=== PATIENT | female | born 1995 | race Caucasian/White ===

== ENCOUNTER → 2020-07-26 07:32 | Outpatient (BNVA) | payer BC, OTHER, SELFPAY | PROVIDERS: Family Provider Family Medicine; Visit Provider Nurse Practitioner Psychiatric/Mental Health | DX: F33.2 Major depressive disorder, recurrent severe without psychotic features (principal); F41.0 Panic disorder [episodic paroxysmal anxiety]; F41.1 Generalized anxiety disorder | CPT/HCPCS: 99214 ==

== ENCOUNTER → 2020-08-11 07:23 | Outpatient (BNVA) | payer OTHER, BC, SELFPAY | PROVIDERS: Family Provider Family Medicine; Visit Provider Nurse Practitioner Psychiatric/Mental Health | DX: F33.2 Major depressive disorder, recurrent severe without psychotic features (principal); F41.0 Panic disorder [episodic paroxysmal anxiety]; F41.1 Generalized anxiety disorder | CPT/HCPCS: 99214 ==

== ENCOUNTER → 2020-09-07 08:23 | Outpatient (BNVA) | payer OTHER, SELFPAY | PROVIDERS: Family Provider Family Medicine; Visit Provider Nurse Practitioner Psychiatric/Mental Health | DX: F33.2 Major depressive disorder, recurrent severe without psychotic features (principal); F41.0 Panic disorder [episodic paroxysmal anxiety]; F41.1 Generalized anxiety disorder | CPT/HCPCS: 99214 ==

== ENCOUNTER → 2020-10-12 07:40 | Outpatient (BNVA) | payer OTHER, SELFPAY | PROVIDERS: Family Provider Family Medicine; Visit Provider Nurse Practitioner Psychiatric/Mental Health | DX: F33.2 Major depressive disorder, recurrent severe without psychotic features (principal); F41.0 Panic disorder [episodic paroxysmal anxiety]; F41.1 Generalized anxiety disorder | CPT/HCPCS: 99213 ==

== ENCOUNTER → 2020-11-09 09:34 | Outpatient (BNVA) | payer OTHER, SELFPAY | PROVIDERS: Visit Provider Emergency Medicine | DX: Z20.828 Contact with and (suspected) exposure to other viral communicable diseases (principal); R11.0 Nausea; R68.89 Other general symptoms and signs; R11.2 Nausea with vomiting, unspecified | CPT/HCPCS: 87400; 87635 ==

== ENCOUNTER → 2020-11-12 10:16 | Outpatient (BNVA) | payer OTHER, SELFPAY | PROVIDERS: Visit Provider Emergency Medicine | DX: Z20.828 Contact with and (suspected) exposure to other viral communicable diseases (principal); R68.89 Other general symptoms and signs | CPT/HCPCS: 71046; 87635 ==

== ENCOUNTER → 2020-12-27 08:14 | Outpatient (BNVA) | payer OTHER, SELFPAY | PROVIDERS: Family Provider Family Medicine; Visit Provider Nurse Practitioner Psychiatric/Mental Health | DX: F33.2 Major depressive disorder, recurrent severe without psychotic features (principal); F41.0 Panic disorder [episodic paroxysmal anxiety]; F41.1 Generalized anxiety disorder | CPT/HCPCS: 99214 ==

== ENCOUNTER 2021-06-28 09:17 | Outpatient (CLI) | payer SELFPAY ==
[2021-06-28 09:30] VITALS: BP 160/106; PULSE 123
[2021-06-28 09:54] VITALS: BP 134/90; PULSE 111
[2021-06-28 10:03] LABS: Actim Prom Negative
[2021-06-28 10:04] VITALS: BMI 57.1
[2021-06-28 10:08] VITALS: RESP 18
[2021-06-28 10:09] VITALS: BP 137/89; PULSE 97
== END 2021-06-28 10:22 | disposition home or self-care (01) ==
LOC: OPOB 09:19 → OBGYN 09:20
PROVIDERS: Family Provider Family Medicine; Visit Provider Family Medicine
DX: O26.899 Other specified pregnancy related conditions, unspecified trimester (principal); Z3A.00 Weeks of gestation of pregnancy not specified; N89.8 Other specified noninflammatory disorders of vagina
CPT/HCPCS: 59025; 83986; 84112; 99211

== ENCOUNTER 2021-06-30 12:47 | Inpatient (IN) | payer SELFPAY ==
[2021-06-30] VITALS (79 sets, daily range): BP systolic 128–173; BP diastolic 60–113; PULSE 74–100; RESP 17–18; TEMP 35.8–37.1; O2SAT 97–98; BMI 64.2
[2021-06-30 10:39] LABS: Nitrazine Paper, PH Positive
[2021-06-30 10:56] LABS: Basophils % 0.1 %; Eosinophils % 0.3 %; Hematocrit 52.4 % (37.0-47.0); Hemoglobin 17.4 g/dL (11.5-15.3); Lymphocytes # 0.9 10^3/uL (0.8-4.8); Lymphocytes % 9.4 %; Mean Corpuscular HGB Conc 33.2 g/dL (30.0-36.0); Mean Corpuscular Hemoglobin 30.3 pg (28.0-34.0); Mean Corpuscular Volume 91.1 fl (81-99); Mean Platelet Volume 10.9 fL (7.4-10.4); Monocytes # 0.4 10^3/uL (0.2-0.9); Monocytes % 4.3 %; Neutrophils # 7.75 10^3/uL (1.8-7.7); Neutrophils % 84.5 %; Nucleated Red Blood Cells % 0 %; Platelet Count 144 10^3/cmm (130-400); Red Blood Count 5.75 10^6/uL (4.1-5.3); Red Cell Distribution Width 14.2 % (12.1-15.1); White Blood Count 9.2 10^3/uL (4.0-10.0)
[2021-06-30] MEDS: miSOPROStol 100 mcg tablet 25 MCG SUBLINGUAL ×2 (11:37→16:18)
[2021-06-30] MEDS: dextrose 5%-lactated ringers 1,000 ML 125 ML IV (11:38)
[2021-06-30] MEDS: hyDROXYzine 25 mg Capsule 50 MG PO ×3 (11:38→21:39)
[2021-06-30] MEDS: ampicillin 2,000 MG in sodium chloride 0.9% (plus) 50 ML 100 MG IV (11:38)
[2021-06-30 13:22] LABS: Urine Creatinine 113 mg/dL (28-217); Urine Protein Random 16 mg/dL
[2021-06-30 13:30] LABS: UPRO/UCREAT Ratio 0.14 mg/mg CR
[2021-06-30] MEDS: ampicillin 1,000 MG in sodium chloride 0.9% (plus) 50 ML 100 MG IV ×3 (15:33→23:02)
[2021-06-30] MEDS: acetaminophen 325 mg Tablet 650 MG PO ×2 (16:40→23:02)
[2021-06-30] MEDS: lactated ringers 1,000 ML 999 ML IV (17:11)
--- NOTE | 2021-06-30 17:11 | ANES.PREANE2 ---
Pre-Anesthetic Assessment Pre-Anesthetic Assessment: Height/Weight: Height 1.64 m Weight 172.365 kg Temp Pulse Resp BP 97.3 F L 74 18 128/60 06/30/21 15:44 06/30/21 16:53 06/30/21 13:33 06/30/21 16:53 Preop Diagnosis: IUP Proposed Procedure: Epidural Familial anesthetic complications: None Was Beta Fartun taken within 24 hours: N/A Was Clonidine taken within 24 hours: N/A Last intake: Ice chips Social: Social History: No alcohol and No tobacco Exam: Pre-Anes Outpt Exam: alert, oriented x 3, clear to auscultation bilaterally and regular rate & rhythm Airway: Cervical ROM: WNL MP: 4 Dentition: Chipped Pulmonary: Pulmonary: Asthma Metabolic: Metabolic: Morbid obesity (Super morbid obesity) Anesthetic Plan: ASA status: 3 Anesthesia: Regional (specify below) Risk of > 500 ml blood loss (7ml/kg in children): No Meds/Allergies Current Medications: Current Medications Generic Name Dose Route Start Last Admin Trade Name Freq PRN Reason Stop Dose Admin Acetaminophen 650 mg 06/30/21 10:21 06/30/21 16:40 Acetaminophen 32 5 Mg Tablet PO 650 mg Q6H PRN Administration Mild pain or temp > 100.4 Hydroxyzine Pamoat e 50 mg 06/30/21 10:21 06/30/21 16:39 Hydroxyzine 25 M g Capsule PO 50 mg QID PRN Administration sleep, agitation or itching Dextrose/Lactated Ringer's 1,000 mls @ 125 m ls/hr 06/30/21 10:30 06/30/21 16:19 Dextrose 5%-Lact ated Ringers IV 0 mls/hr .Q8H NELI Infusion Ampicillin Sodium 1,000 mg/ 50 mls @ 100 mls/ hr 06/30/21 15:15 06/30/21 16:19 Sodium Chloride IV Infused Q4H NELI Infusion Protocol Lactated Ringer's 1,000 mls @ 999 m ls/hr 06/30/21 17:08 06/30/21 17:11 Lactated Ringers IV 999 mls/hr .Q1H1M PRN Administration See label comment s PFSH Anesthesia PFSH: Medical History (System 02/09/21 @ 13:12 by Valeria Monaco) Generalized anxiety disorder Major depressive disorder, recurrent severe without psychotic features Panic disorder without agoraphobia with moderate panic attacks Social History (System 02/09/21 @ 13:12 by Valeria Monaco) Smoking and tobacco status: never smoked Alcohol intake: never Female Reproductive History: : 3 Data Anesthesia CBC & Chem 7: 06/30/21 09:58 Other Labs: Laboratory Results - last 48 hr 06/30/21 06/30/21 09:58 12:30 WBC 9.2 RBC 5.75 H Hgb 17.4 H Hct 52.4 H MCV 91.1 MCH 30.3 MCHC 33.2 RDW 14.2 Plt Count 144 MPV 10.9 H Neut % (Auto) 84.5 Lymph % (Auto) 9.4 [place] % (Auto) 4.3 Eos % (Auto) 0.3 Baso % (Auto) 0.1 Neut # (Auto) 7.75 H Lymph # (Auto) 0.9 [place] # (Auto) 0.4 Eos # (Auto) 0.0 Baso # (Auto) 0.0 Nucleated RBC % (auto) 0 Nucleated RBCs # 0.0 U Random Total Protein 16 Urine Creatinine 113 Protein/Creatinin Ratio 0.14 Cardiac Studies: No Data to Display
--- NOTE | 2021-06-30 18:30 | ANES.PROC ---
Anesthesia Procedures Procedure/Date: 06/30/21 Epidural: Time Out Performed: Yes Consents Signed: Procedure Consent, NPO Consent and No Consent Needed Consent: requested by attending/covering physician, from patient and patient agrees to proceed Lumbar Level: L3-L4 Epidural position: sitting Epidural procedure: sterile prep of area, 1% lidocaine to numb the area, 18 g needle, negative for paresthesia passed, neg for paresthesia, test dose given, 1.5% xylocaine 1:200k epi (3 cc), 0.2% Ropivacaine bolus ml (5), placed PCEA, no systemic response, sterile dressing applied, L.U.D. no apparent complications and 0.2% Ropiavacaine @ mls/hr (13) Additional Comments: First attempt with wet Tap. 2nd attempt NOLAN at 8 cm, threaded to 14 cm. Patient reported decreased intensity of contractions and onset of numbness of toes after bolus
[2021-07-01] VITALS (48 sets, daily range): BP systolic 117–161; BP diastolic 61–103; PULSE 81–144; RESP 16–18; TEMP 36.1–36.8
[2021-07-01] MEDS: dextrose 5%-lactated ringers 1,000 ML 125 ML IV (02:05)
[2021-07-01] MEDS: ampicillin 1,000 MG in sodium chloride 0.9% (plus) 50 ML 100 MG IV (03:14)
[2021-07-01] MEDS: oxytocin 30 UNIT/500 ML BAG 600 UNIT IV (05:28)
--- NOTE | 2021-07-01 05:43 | PM.OPHPUD ---
Labor & Delivery H&P Update Date of Procedure: July 01, 2021 Date H&P Performed: 06/28/21 H&P update information: I have reviewed H&P completed within last 30 days, I have examined patient prior to procedure, Changes to prior documentation as noted here and H&P to be scanned into chart Changes to previous documentation: Spontaneous rupture of membranes Admission Diagnosis: Preop diagnosis: IUP Planned procedure: Spontaneous vaginal delivery Related Problem List Diagnoses (1) Generalized anxiety disorder: (2) Panic disorder without agoraphobia with moderate panic attacks: (3) Major depressive disorder, recurrent severe without psychotic features: (4) 37 weeks gestation of : (5) Spontaneous rupture of membranes:
--- NOTE | 2021-07-01 05:48 | P.PCNOB_ITS ---
Delivery Note: Date of delivery: July 01, 2021 Pre-delivery diagnoses: 26-year-old 3 para 1-0-1-1 at 37 weeks and 6 days presenting to the hospital with spontaneous rupture membranes. Post- delivery diagnoses: Status post spontaneous vaginal delivery. Procedure: Spontaneous vaginal delivery. Op report anesthesia: Epidural Estimated blood loss (mL): 400 Pre-Delivery Course: The patient presented to the hospital yesterday with spontaneous rupture membranes. Her membranes ruptured yesterday at 7:00 in the morning. She came to the hospital where she was noted to have grossly ruptured membranes. Cytotec 25 mcg x 2 were given sublingual. An epidural was placed. The patient was noted to have intermittent elevations of blood pressure during her labor process. These appear to be related to her anxiety. She was given Vistaril multiple times, and she did have intermittent blood pressures with a systolic greater than 160, but she did not maintain a blood pressure in that range. The patient then progressed to complete without difficulty. While the patient does have multiple psychiatric problems, she had a relatively unremarkable . Her psychiatric problems were in good control with her regimen of medications. Her blood type was a positive. She was GBS positive. She was Covid negative. She failed her initial glucose screen, but passed her 3-hour glucose screen. She received her Tdap vaccination. She was rubella immune. The remainder of her infectious disease panel was within normal limits. The patient was noted to have intermittent elevations in her blood pressure during her . These appear to be related to anxiety for the most part. Delivery: DELIVERY: The patient progressed to complete without difficulty. She delivered a male with a weight of 7 pounds 15 ounces with Apgars of 7, 8. The baby was delivered from the NALDO position. The baby's mouth and nose were suctioned at the site of the perineum. The baby was then completely delivered and placed on the mother's abdomen. The cord was then clamped and cut. There was no nuchal cord. There was no meconium. The placenta and 3 vessel cord were delivered intact shortly thereafter. The perineum and vaginal vault were carefully examined. A first-degree posterior midline laceration was noted that did not require repair. Both the mother and the baby were in stable condition. Post-Delivery Status: Good A&P Assessment and plan (1) Generalized anxiety disorder: Status: Chronic (2) Panic disorder without agoraphobia with moderate panic attacks: Status: Chronic (3) Major depressive disorder, recurrent severe without psychotic features: Status: Chronic (4) 37 weeks gestation of : Status: Acute (5) Spontaneous rupture of membranes: Status: Acute (6) Spontaneous vaginal delivery: Status: Acute Coding Level of Care Code Acute Supervisor Scrap Preparation for [facility] Fwd Diagnoses Generalized anxiety disorder F41.1 Panic disorder without agoraphobia with moderate panic attacks F41.0 Major depressive disorder, recurrent severe without psychotic features F33.2 37 weeks gestation of Z3A.37 Spontaneous rupture of membranes Spontaneous vaginal delivery O80
[2021-07-01] MEDS: HYDROcodone-acetaminophen 5-325 mg Tablet PO ×2 (07:23→15:15)
[2021-07-01] MEDS: ibuprofen 800 mg tablet PO ×3 (09:01→20:28)
[2021-07-01] MEDS: ARIPiprazole 2 mg Tablet PO (09:01)
[2021-07-01] MEDS: prenatal vitamin Capsule 1 CAP PO (09:01)
[2021-07-01] MEDS: docusate sodium 100 mg Capsule PO ×2 (09:01→17:36)
[2021-07-01] MEDS: BuSPIRONE 10 mg Tablet PO ×3 (09:01→20:28)
[2021-07-01] MEDS: venlafaxine ER (24HR) 75 mg Capsule PO (09:01)
[2021-07-01] MEDS: venlafaxine ER (24HR) 150 mg Capsule PO (09:02)
--- NOTE | 2021-07-01 10:15 | PC.NURSE ---
PT UP TO BATHROOM. VOID 400ML. JENNY CARE DISCUSSED AND PERFORMED BY PT. UNDERWEAR AND PAD CHANGED. GOWN CHANGED. ICE PACK TO JENNY AREA. PT THEN AMBULATED TO OB7. ORIENTED TO ROOM/CALL LIGHT, PROUD PARENT PACK, AND HOSPITAL PAPERWORK DISCUSSED.
[2021-07-01 18:23] LABS: Hematocrit 34.7 % (37.0-47.0); Hemoglobin 11.4 g/dL (11.5-15.3); Mean Corpuscular HGB Conc 32.9 g/dL (30.0-36.0); Mean Corpuscular Hemoglobin 30.1 pg (28.0-34.0); Mean Corpuscular Volume 91.6 fl (81-99); Mean Platelet Volume 10.7 fL (7.4-10.4); Platelet Count 198 10^3/cmm (130-400); Red Blood Count 3.79 10^6/uL (4.1-5.3); White Blood Count 13.6 10^3/uL (4.0-10.0)
[2021-07-01] MEDS: trazodone 50 mg Tablet PO (23:24)
[2021-07-02] VITALS (18 sets, daily range): BP systolic 115–165; BP diastolic 52–106; PULSE 69–93; RESP 16–18; TEMP 36.4–37; O2SAT 94–98
[2021-07-02] MEDS: venlafaxine ER (24HR) 150 mg Capsule PO (06:36)
[2021-07-02] MEDS: venlafaxine ER (24HR) 75 mg Capsule PO (06:36)
[2021-07-02] MEDS: HYDROcodone-acetaminophen 5-325 mg Tablet PO (07:45)
[2021-07-02] MEDS: lactated ringers 1,000 ML 999 ML IV (08:48)
--- NOTE | 2021-07-02 08:50 | ANES.PROC ---
Anesthesia Procedures Procedure/Date: 07/02/21 Procedure Narrative: epidural blood patch attempted after Scout Coker had attempted. no success. options given to proceed with blood patch or offer IV medications to include Decadron 8mg, zofran 4mg, Toradol 25mg. aminophylline 250mg IVPB ordered for relief of headache along with 1 liter of LR bolus.
[2021-07-02] MEDS: aminophylline 25 mg/mL SDV 10 mL 250 MG IVP (09:18)
--- NOTE | 2021-07-02 09:43 | PM.OBGYDC ---
Discharge Providers WAITER/WAITRESS ECONOMY CLASS Date of Admission: 06/30/21 12:47 Date of Discharge: 07/02/21 Attending Provider at Admission: Broa Dupree MD Attending Provider at Discharge: Bora Dupree MD Primary Care Provider: Fili Deleon Diagnoses at Discharge Discharge Diagnosis (1) Generalized anxiety disorder: Status: Chronic (2) Panic disorder without agoraphobia with moderate panic attacks: Status: Chronic (3) Major depressive disorder, recurrent severe without psychotic features: Status: Chronic (4) 37 weeks gestation of : Status: Acute (5) Spontaneous rupture of membranes: Status: Acute (6) Spontaneous vaginal delivery: Status: Acute Reason for Visit Reason for Visit: PROM Hospital Course Hospital Course The patient presented to the hospital with spontaneous rupture of she was given Cytotec 25 mcg sublingual x2. She progressed to complete and had an unremarkable delivery of a healthy-appearing male . Her course was remarkable for having a spinal headache. A blood patch was attempted and was unsuccessful. She was treated with medicine and her headache has improved. Information Peripartum Data: Infant Delivery Method: Vaginal Physical Exam Narrative: EXAM NARRATIVE: The patient is alert. She appears comfortable while she is lying down. Her heart has a regular rate and rhythm with no murmurs appreciated. Lungs are clear to auscultation bilaterally. Her fundus is firm and below the umbilicus. Urinary Catheter Management^: Powell: Cath Placed During This Visit: yes, but has since been removed by the nurse Reason for Continuing Indwelling Catheter: Decision to DC Catheter Urinary Catheter Date of Insertion: 06/30/21 Urinary Catheter Time of Insertion: 18:35 Date Urinary Catheter Removed: 07/01/21 Time Urinary Catheter Discontinued: 05:01 Discharge Data Data Completed and Pending: Labs from last 24 hours 07/01/21 18:10 WBC 13.6 H RBC 3.79 L Hgb 11.4 L Hct 34.7 L MCV 91.6 MCH 30.1 MCHC 32.9 RDW 14.0 Plt Count 198 MPV 10.7 H Vitals: Last Vital Signs Temp 97.6 F 07/02/21 09:15 Pulse 84 07/02/21 09:41 Resp 18 07/02/21 09:41 BP 120/82 07/02/21 09:41 Pulse Ox 95 07/02/21 09:41 Discharge Plan Discharge Patient Disposition: Home Condition: Stable Prescriptions: New ibuprofen 800 mg Tablet 800 mg PO TID Qty: 45 RF: 0 hydrocodone-acetaminophen 5-325 mg Tablet 1 tab PO Q6H PRN (Reason: Moderate To Severe Pain) Qty: 25 RF: 0 Continued aripiprazole [Abilify] 2 mg tablet 2 mg PO DAILY Qty: 90 RF: 2 buspirone 10 mg tablet 10 mg PO TID Qty: 270 RF: 2 trazodone 50 mg tablet 50 mg PO .bedtime Qty: 90 RF: 2 venlafaxine [Effexor XR] 75 mg capsule,extended release 24hr 75 mg PO QAM Qty: 90 RF: 2 venlafaxine [Effexor XR] 150 mg capsule,extended release 24hr 150 mg PO QAM Qty: 90 RF: 2 Discharge Orders: Discharge Order (Routine); Ordered 07/02/21 Ordered By: Bora Dupree Referrals: Bora Dupree MD [Physician] - 6 Weeks (For spinal headache is too severe, she can see me sooner if needed.) Discharge Diet: Usual diet Discharge Activity: Limit activity as instructed Patient Instructions: Pre-eclampsia and Eclampsia (DC), Bleeding (DC), OB Discharge Report, OB Food/Drug Interaction Guide, OB Care at Home, Opioid Safety, OB Home Care, OB Vaginal Deliveries, Abnormal Bleeding, Depression Discharge Attestations WAITER/WAITRESS ECONOMY CLASS Time Spent in Discharge Care*: less than 30 min Coding Level of Care Code Acute [employer] Estate [employer] Principal for [facility] Fwd Diagnoses Generalized anxiety disorder F41.1 Panic disorder without agoraphobia with moderate panic attacks F41.0 Major depressive disorder, recurrent severe without psychotic features F33.2 37 weeks gestation of Z3A.37 Spontaneous rupture of membranes Spontaneous vaginal delivery O80
[2021-07-02] MEDS: docusate sodium 100 mg Capsule PO (09:51)
[2021-07-02] MEDS: ibuprofen 800 mg tablet PO ×2 (09:51→14:46)
[2021-07-02] MEDS: BuSPIRONE 10 mg Tablet PO (09:51)
[2021-07-02] MEDS: ARIPiprazole 2 mg Tablet PO (09:51)
[2021-07-02] MEDS: prenatal vitamin Capsule 1 CAP PO (09:51)
--- NOTE | 2021-07-02 10:00 | ANE.PACU2 ---
Inpatient post-anesthesia follow up: Airway intact: Yes Vital signs: Temperature 98.6 F Pulse Rate 92 Respiratory Rate 18 Blood Pressure 153/92 Pulse Oximetry 98 Oxygen Delivery Me thod Room Air Oxygen Flow Rate Fraction of Inspir ed Oxygen Hydration adequate: Yes Nausea and vomiting: No Pain level: 3 Mental status: Baseline Additional Comments: PDPH - attempted blood patch, unsuccessful. IV meds given with good result
--- NOTE | 2021-07-02 15:29 | PC.NURSE ---
Blood Patch Dr. Coker offered a blood patch to patient r/t spinal headache. Dr. Coker attempted to obtain access to epidural space x4 times. Lucía is then called to room to attempt to find space to place blood patch. Tamar Ayoub CRNA attempted x2. Unable to get in correct space. Patient requesting to stop procedure. Procedure stopped at that time after 1 hour of attempting to find space to place patch. Patient offered several medications to help alleviate spinal headache and is agreeable to them.
== END 2021-07-02 15:35 | disposition home or self-care (01) | DRG 806 ==
LOC: OPOB 12:48 → OBGYN 12:48
PROVIDERS: Admitting Provider Family Medicine; PCP Family Medicine; Visit Provider Family Medicine
DX: O99.344 Other mental disorders complicating childbirth (principal); F33.2 Major depressive disorder, recurrent severe without psychotic features; Z37.0 Single live birth; O16.3 Unspecified maternal hypertension, third trimester; F41.1 Generalized anxiety disorder; O99.343 Other mental disorders complicating pregnancy, third trimester; Z3A.37 37 weeks gestation of pregnancy; Z88.2 Allergy status to sulfonamides
CPT/HCPCS: 12345; 36415; 51702; 59025; 59409; 82570; 83986; 84156; 85025; 85027; 99211; J0280; J0290; J1100; J1885; J2405; J2795

== ENCOUNTER 2021-07-05 03:05 | Emergency (ER) | payer SELFPAY ==
[2021-07-05] VITALS (8 sets, daily range): BP systolic 149–180; BP diastolic 83–110; PULSE 71–94; RESP 16–20; TEMP 36.7; O2SAT 95–98; BMI 56.6
--- NOTE | 2021-07-05 03:08 | XRR_ITS ---
PROCEDURE INFORMATION: Exam: XR Chest Exam date and time: 07/05/2021 3:08 AM Age: 26 years old Clinical indication: Shortness of breath; Patient HX: Onset of SOB four days post . TECHNIQUE: Imaging protocol: XR of the chest. Views: 1 view. COMPARISON: No relevant prior studies available. FINDINGS: Lungs: Hazy left basilar opacity which could be secondary to atelectasis or pneumonia. Pleural spaces: Unremarkable. No pleural effusion. No pneumothorax. Heart/Mediastinum: Unremarkable. No cardiomegaly. Bones/joints: Unremarkable. XR/XR chest 1V portable [id number] IMPRESSION: Hazy left basilar opacity which could be secondary to atelectasis or pneumonia.
--- NOTE | 2021-07-05 03:09 | ECG_ITS ---
[facility] Test Date: 2021-07-05 Pat Name: Cinthia Osullivan Department: Room: Gender: Female Email Marketing Coordinator: : 1995 Requested By: Ned Carmona Order Number: [id number] Yang MD: Kim Vidal M.D. Measurements Intervals [place] Rate: 68 P: 30 FL: 149 QRS: 42 QRSD: 91 T: 53 QT: 368 QTc: 394 Interpretive Statements SINUS RHYTHM No previous ECG available for comparison Electronically Signed On 07-05-2021 17:04:28 CDT by Kim Vidal M.D. [email or web address]
[2021-07-05 03:53] LABS: Basophils % 0.2 %; Eosinophils # 0.2 10^3/uL (0.0-0.8); Eosinophils % 1.9 %; Hematocrit 34.6 % (37.0-47.0); Hemoglobin 11.2 g/dL (11.5-15.3); Lymphocytes # 1.6 10^3/uL (0.8-4.8); Lymphocytes % 16.3 %; Mean Corpuscular HGB Conc 32.4 g/dL (30.0-36.0); Mean Corpuscular Hemoglobin 30.5 pg (28.0-34.0); Mean Corpuscular Volume 94.3 fl (81-99); Mean Platelet Volume 10.2 fL (7.4-10.4); Monocytes # 0.6 10^3/uL (0.2-0.9); Monocytes % 5.7 %; Neutrophils # 7.39 10^3/uL (1.8-7.7); Neutrophils % 74.6 %; Nucleated Red Blood Cells % 0 %; Platelet Count 230 10^3/cmm (130-400); Red Blood Count 3.67 10^6/uL (4.1-5.3); Red Cell Distribution Width 14.4 % (12.1-15.1); White Blood Count 9.9 10^3/uL (4.0-10.0)
--- NOTE | 2021-07-05 03:56 | W.ED.SOB ---
Documented by User: Ned Carmona MD 07/05/21 04:05 HPI - SOB/Dyspnea General: Chief Complaint: Shortness of Breath/Dyspnea Stated Complaint: Sob\Post Time Seen by Provider: 07/05/21 03:47 Source: patient Mode of arrival: ambulatory Limitations: no limitations History of Present Illness: HPI Narrative: -year-old female who is 1 days states that today she has been having increasing shortness of breath. States she is extremely anxious about having a pulmonary embolism and is tearful at this time. States that she has had some pressure in her chest and dyspnea. Patient is hypertensive here and has had some increased swelling since giving . She denies any problems with her denies having preeclampsia or eclampsia. She denies any vomiting or diarrhea. She states she does have some slight dyspnea on exertion. Associated symptoms: Deny abdominal pain, chest pain, fever(s), nausea or vomiting Review of Systems Const: Denies: fever(s), chills, body aches or change in appetite Eyes: Denies: blurry vision or eye discomfort ENMT: Denies: throat pain or dental pain Card: Denies: chest pain Resp: Reports: dyspnea GI: Denies: abdominal pain, nausea, vomiting or diarrhea : Denies: dysuria Musc: Denies: neck pain or back pain Skin/Breast: Denies: rash Neuro: Denies: headache(s) Psych: Denies: depression Nima/Lymph: Denies: easy bruising All/Imm: Denies: urticaria PFSH ED PFSH: Medical History Generalized anxiety disorder Hypertension Major depressive disorder, recurrent severe without psychotic features Panic disorder without agoraphobia with moderate panic attacks Social History Smoking and tobacco status: never smoked Alcohol intake: never Physical Exam Const: COMMON NORMALS: no acute distress, patient oriented x3 and healthy appearing HENMT: COMMON NORMALS: normocephalic and atraumatic HEAD & SCALP: normocephalic and atraumatic Eye: COMMON NORMALS: Equal, round and reactive pupils present and EOMs intact bilaterally PUPIL: Yes Equal, round and reactive pupils present Neck/C-Spine: COMMON NORMALS: full ROM and supple Chest: COMMONS NORMALS: normal inspection of the chest and normal palpation of entire chest wall Resp: COMMON NORMALS: normal respiratory effort, No retractions, No use of accessory muscles and clear to auscultation bilaterally AUSCULTATION: clear to auscultation bilaterally Cardio: COMMON NORMALS: regular rate, regular rhythm and No murmurs present (Cardio) RATE: regular rate RHYTHM: regular rhythm GI: COMMON NORMALS: Normal to inspection, nondistended, normoactive bowel sounds present, Soft to palpation, non-tender and no masses PALPATION: Yes Soft to palpation Extremity: COMMON NORMALS: normal to inspection and full ROM Neuro: COMMON NORMALS: patient oriented x3, moves all extremities and no focal motor deficits Psych: COMMON NORMALS: mental status grossly normal, Normal thought process present and cooperative THOUGHT PROCESS: Normal thought process present Skin: COMMON NORMALS: no rashes or lesions noted and no wounds GENERAL SKIN EXAM: no rashes or lesions noted Course Vital Signs: Vital signs: Vital Signs Temperature 98.0 F 07/05/21 03:08 Pulse Rate 94 07/05/21 09:42 Respiratory Rate 17 07/05/21 09:42 Blood Pressure 157/99 07/05/21 09:42 Pulse Oximetry 95 07/05/21 09:42 MDM - SOB/Dyspnea Lab Data: Labs: Lab Results 07/05/21 07/05/21 07/05/21 Range/Units 03:40 03:40 03:40 WBC 9.9 (4.0-10.0) 10^3/ uL RBC 3.67 L (4.1-5.3) 10^6/u L Hgb 11.2 L (11.5-15.3) g/dL Hct 34.6 L (37.0-47.0) % MCV 94.3 (81-99) fl MCH 30.5 (28.0-34.0) pg MCHC 32.4 (30.0-36.0) g/dL RDW 14.4 (12.1-15.1) % Plt Count 230 (130-400) 10^3/c mm MPV 10.2 (7.4-10.4) fL Neut % (Auto) 74.6 % Lymph % (Auto) 16.3 % Lamb % (Auto) 5.7 % Eos % (Auto) 1.9 % Baso % (Auto) 0.2 % Neut # (Auto) 7.39 (1.8-7.7) 10^3/u L Lymph # (Auto) 1.6 (0.8-4.8) 10^3/u L Lamb # (Auto) 0.6 (0.2-0.9) 10^3/u L Eos # (Auto) 0.2 (0.0-0.8) 10^3/u L Baso # (Auto) 0.0 (0.0-0.1) 10^3/u L Nucleated RBC % (a uto) 0 % Nucleated RBCs # 0.0 /100WBC PT 12.70 (12.1-14.9) SECO NDS INR 0.93 (0.8-1.2) D-Dimer 1.83 H (0-0.59) ug/mIFE U Sodium 138 (136-145) mmol/L Potassium 5.0 (3.5-5.1) mmol/L Chloride 107 (98-107) mmol/L Carbon Dioxide 19 L (22-29) mmol/L Anion Gap 17.0 (5-19) BUN 13 (6-20) mg/dL Creatinine 0.5 (0.5-0.9) mg/dL GFR Calculation 146.9 H (90-130) mL/min Glucose 91 (65-115) mg/dL Calculated Osmolal ity 286 (285-295) mOsm/k g Calcium 8.3 L (8.5-10.5) mg/dL Total Bilirubin 0.3 (0.15-1.2) mg/dL AST 30 (0-32) U/L ALT 34 H (0-33) U/L Alkaline Phosphata se 112 H (35-105) IU/L Troponin T Baselin e (0-10) ng/L Troponin T 120 Min [place] (0-10) ng/L Delta Troponin T (0-10) ABS# NT-Pro-B Natriuret Pep 500 H (0-125) pg/mL Total Protein 5.4 L (6.6-8.7) g/dL Albumin 3.0 L (3.5-5.2) g/dL Globulin 2.4 (1.3-4.6) g/dL Urine Color (Yellow) Urine Appearance (CLEAR) Urine pH (5-7) Ur Specific Gravit y (1.005-1.030) Urine Protein (Negative) Urine Glucose (UA) (Normal) Urine Ketones (Negative) Urine Blood (Negative) Urine Nitrate (Negative) Urine Bilirubin (Negative) Urine Urobilinogen (Negative) mg/dL Ur Leukocyte Nohelia ase (Negative) Urine RBC (0-2) /hpf Urine WBC (0-5) /hpf Ur Squamous Epith Cells (0-5) /hpf Amorphous Sediment Urine Bacteria (NONE) /hpf Urine Mucus /hpf 07/05/21 07/05/21 07/05/21 Range/Units 03:40 03:40 06:40 WBC (4.0-10.0) 10^3/ uL RBC (4.1-5.3) 10^6/u L Hgb (11.5-15.3) g/dL Hct (37.0-47.0) % MCV (81-99) fl MCH (28.0-34.0) pg MCHC (30.0-36.0) g/dL RDW (12.1-15.1) % Plt Count (130-400) 10^3/c mm MPV (7.4-10.4) fL Neut % (Auto) % Lymph % (Auto) % Lamb % (Auto) % Eos % (Auto) % Baso % (Auto) % Neut # (Auto) (1.8-7.7) 10^3/u L Lymph # (Auto) (0.8-4.8) 10^3/u L Lamb # (Auto) (0.2-0.9) 10^3/u L Eos # (Auto) (0.0-0.8) 10^3/u L Baso # (Auto) (0.0-0.1) 10^3/u L Nucleated RBC % (a uto) % Nucleated RBCs # /100WBC PT (12.1-14.9) SECO NDS INR (0.8-1.2) D-Dimer (0-0.59) ug/mIFE U Sodium (136-145) mmol/L Potassium (3.5-5.1) mmol/L Chloride (98-107) mmol/L Carbon Dioxide (22-29) mmol/L Anion Gap (5-19) BUN (6-20) mg/dL Creatinine (0.5-0.9) mg/dL GFR Calculation (90-130) mL/min Glucose (65-115) mg/dL Calculated Osmolal ity (285-295) mOsm/k g Calcium (8.5-10.5) mg/dL Total Bilirubin (0.15-1.2) mg/dL AST (0-32) U/L ALT (0-33) U/L Alkaline Phosphata se (35-105) IU/L Troponin T Baselin e 8 (0-10) ng/L Troponin T 120 Min [place] 8.19 (0-10) ng/L Delta Troponin T 0.19 (0-10) ABS# NT-Pro-B Natriuret Pep (0-125) pg/mL Total Protein (6.6-8.7) g/dL Albumin (3.5-5.2) g/dL Globulin (1.3-4.6) g/dL Urine Color Yellow (Yellow) Urine Appearance Hazy A (CLEAR) Urine pH 5 (5-7) Ur Specific Gravit y 1.020 (1.005-1.030) Urine Protein Neg (Negative) Urine Glucose (UA) Norm (Normal) Urine Ketones Negative (Negative) Urine Blood 3+ H (Negative) Urine Nitrate Negative (Negative) Urine Bilirubin Neg (Negative) Urine Urobilinogen 1 H (Negative) mg/dL Ur Leukocyte Nohelia ase 1+ H (Negative) Urine RBC >100 H (0-2) /hpf Urine WBC 0-4 H (0-5) /hpf Ur Squamous Epith Cells 5-10 H (0-5) /hpf Amorphous Sediment Not Reportable Urine Bacteria 1+ H (NONE) /hpf Urine Mucus Trace /hpf Imaging Data^: CXR: Attestation: I personally reviewed and interpreted this imaging study as follows: My impression: no acute abnormality EKG Data^: EKG 1: Attestation: I personally reviewed and interpreted this EKG as follows: EKG Interpretation Date: 07/05/21 EKG interpretation time: 03:55 Interpretation: nsr hr [address] or t wave abnormalities qrs 91 qtc 386 Discharge Plan Discharge Patient Disposition: Home Clinical Impression: cardiomyopathy, HTN (hypertension) Condition: Stable Prescriptions: New metoprolol tartrate 25 mg tablet 12.5 mg PO DAILY Qty: 14 RF: 0 lisinopril 10 mg tablet 10 mg PO DAILY Qty: 30 RF: 0 No Action aripiprazole [Abilify] 2 mg tablet 2 mg PO DAILY Qty: 90 RF: 2 buspirone 10 mg tablet 10 mg PO TID Qty: 270 RF: 2 trazodone 50 mg tablet 50 mg PO .bedtime Qty: 90 RF: 2 venlafaxine [Effexor XR] 75 mg capsule,extended release 24hr 75 mg PO QAM Qty: 90 RF: 2 venlafaxine [Effexor XR] 150 mg capsule,extended release 24hr 150 mg PO QAM Qty: 90 RF: 2 ibuprofen 800 mg Tablet 800 mg PO TID Qty: 45 RF: 0 hydrocodone-acetaminophen 5-325 mg Tablet 1 tab PO Q6H PRN (Reason: Moderate To Severe Pain) Qty: 25 RF: 0 Discharge Orders: Discharge ED (Routine); Ordered 07/05/21 Ordered By: Yoshi Cho Referrals: Fili Deleon [Primary Care Provider] - Patient Instructions: Opioid Safety Sign Out Sign Out Data: Patient Sign Out occurred on 07/05/21 at 07:40. Patient's care was discussed, and care was transferred from to Yoshi Cho DO. Coding Level of Care Code ED Manager Medicaid for Chg Fwd Exam Comprehensive Documented by User: Yoshi Cho DO 07/05/21 09:47 HPI - SOB/Dyspnea General: Chief Complaint: Shortness of Breath/Dyspnea Stated Complaint: Sob\Post Time Seen by Provider: 07/05/21 03:47 PFSH ED PFSH: Medical History Generalized anxiety disorder Hypertension Major depressive disorder, recurrent severe without psychotic features Panic disorder without agoraphobia with moderate panic attacks Social History Smoking and tobacco status: never smoked Alcohol intake: never Course Vital Signs: Vital signs: Vital Signs Temperature 98.0 F 07/05/21 03:08 Pulse Rate 94 07/05/21 09:42 Respiratory Rate 17 07/05/21 09:42 Blood Pressure 157/99 07/05/21 09:42 Pulse Oximetry 95 07/05/21 09:42 MDM - SOB/Dyspnea MDM Narrative: Medical decision making narrative: 26-year-old female care assumed at change of shift. She is hypertensive extremely anxious unfortunately she had a post spinal tap headache as well and a blood patch did not resolve her symptoms. She has bilateral small pleural effusions some mild venous congestion on [address] Carmona had gotten an echo overnight the preliminary read was unremarkable were waiting on final read. Reading through her OB notes think some of her blood pressure is driven by anxiety. She is given several doses of hydralazine down here with some moderate improvement. We will go ahead and discharge her home on Toprol-XL 12 and half milligrams daily in addition to that we will add lisinopril 10 mg daily and avoid diuretics she does not much vascular congestion is able actually worsen her headache discussed Dr. Dupree he concurs and will see her back tomorrow asked her to return she has further problems. Lab Data: Labs: Lab Results 07/05/21 07/05/21 07/05/21 Range/Units 03:40 03:40 03:40 WBC 9.9 (4.0-10.0) 10^3/ uL RBC 3.67 L (4.1-5.3) 10^6/u L Hgb 11.2 L (11.5-15.3) g/dL Hct 34.6 L (37.0-47.0) % MCV 94.3 (81-99) fl MCH 30.5 (28.0-34.0) pg MCHC 32.4 (30.0-36.0) g/dL RDW 14.4 (12.1-15.1) % Plt Count 230 (130-400) 10^3/c mm MPV 10.2 (7.4-10.4) fL Neut % (Auto) 74.6 % Lymph % (Auto) 16.3 % Lamb % (Auto) 5.7 % Eos % (Auto) 1.9 % Baso % (Auto) 0.2 % Neut # (Auto) 7.39 (1.8-7.7) 10^3/u L Lymph # (Auto) 1.6 (0.8-4.8) 10^3/u L Lamb # (Auto) 0.6 (0.2-0.9) 10^3/u L Eos # (Auto) 0.2 (0.0-0.8) 10^3/u L Baso # (Auto) 0.0 (0.0-0.1) 10^3/u L Nucleated RBC % (a uto) 0 % Nucleated RBCs # 0.0 /100WBC PT 12.70 (12.1-14.9) SECO NDS INR 0.93 (0.8-1.2) D-Dimer 1.83 H (0-0.59) ug/mIFE U Sodium 138 (136-145) mmol/L Potassium 5.0 (3.5-5.1) mmol/L Chloride 107 (98-107) mmol/L Carbon Dioxide 19 L (22-29) mmol/L Anion Gap 17.0 (5-19) BUN 13 (6-20) mg/dL Creatinine 0.5 (0.5-0.9) mg/dL GFR Calculation 146.9 H (90-130) mL/min Glucose 91 (65-115) mg/dL Calculated Osmolal ity 286 (285-295) mOsm/k g Calcium 8.3 L (8.5-10.5) mg/dL Total Bilirubin 0.3 (0.15-1.2) mg/dL AST 30 (0-32) U/L ALT 34 H (0-33) U/L Alkaline Phosphata se 112 H (35-105) IU/L Troponin T Baselin e (0-10) ng/L Troponin T 120 Min [place] (0-10) ng/L Delta Troponin T (0-10) ABS# NT-Pro-B Natriuret Pep 500 H (0-125) pg/mL Total Protein 5.4 L (6.6-8.7) g/dL Albumin 3.0 L (3.5-5.2) g/dL Globulin 2.4 (1.3-4.6) g/dL Urine Color (Yellow) Urine Appearance (CLEAR) Urine pH (5-7) Ur Specific Gravit y (1.005-1.030) Urine Protein (Negative) Urine Glucose (UA) (Normal) Urine Ketones (Negative) Urine Blood (Negative) Urine Nitrate (Negative) Urine Bilirubin (Negative) Urine Urobilinogen (Negative) mg/dL Ur Leukocyte Nohelia ase (Negative) Urine RBC (0-2) /hpf Urine WBC (0-5) /hpf Ur Squamous Epith Cells (0-5) /hpf Amorphous Sediment Urine Bacteria (NONE) /hpf Urine Mucus /hpf 07/05/21 07/05/21 07/05/21 Range/Units 03:40 03:40 06:40 WBC (4.0-10.0) 10^3/ uL RBC (4.1-5.3) 10^6/u L Hgb (11.5-15.3) g/dL Hct (37.0-47.0) % MCV (81-99) fl MCH (28.0-34.0) pg MCHC (30.0-36.0) g/dL RDW (12.1-15.1) % Plt Count (130-400) 10^3/c mm MPV (7.4-10.4) fL Neut % (Auto) % Lymph % (Auto) % Lamb % (Auto) % Eos % (Auto) % Baso % (Auto) % Neut # (Auto) (1.8-7.7) 10^3/u L Lymph # (Auto) (0.8-4.8) 10^3/u L Lamb # (Auto) (0.2-0.9) 10^3/u L Eos # (Auto) (0.0-0.8) 10^3/u L Baso # (Auto) (0.0-0.1) 10^3/u L Nucleated RBC % (a uto) % Nucleated RBCs # /100WBC PT (12.1-14.9) SECO NDS INR (0.8-1.2) D-Dimer (0-0.59) ug/mIFE U Sodium (136-145) mmol/L Potassium (3.5-5.1) mmol/L Chloride (98-107) mmol/L Carbon Dioxide (22-29) mmol/L Anion Gap (5-19) BUN (6-20) mg/dL Creatinine (0.5-0.9) mg/dL GFR Calculation (90-130) mL/min Glucose (65-115) mg/dL Calculated Osmolal ity (285-295) mOsm/k g Calcium (8.5-10.5) mg/dL Total Bilirubin (0.15-1.2) mg/dL AST (0-32) U/L ALT (0-33) U/L Alkaline Phosphata se (35-105) IU/L Troponin T Baselin e 8 (0-10) ng/L Troponin T 120 Min [place] 8.19 (0-10) ng/L Delta Troponin T 0.19 (0-10) ABS# NT-Pro-B Natriuret Pep (0-125) pg/mL Total Protein (6.6-8.7) g/dL Albumin (3.5-5.2) g/dL Globulin (1.3-4.6) g/dL Urine Color Yellow (Yellow) Urine Appearance Hazy A (CLEAR) Urine pH 5 (5-7) Ur Specific Gravit y 1.020 (1.005-1.030) Urine Protein Neg (Negative) Urine Glucose (UA) Norm (Normal) Urine Ketones Negative (Negative) Urine Blood 3+ H (Negative) Urine Nitrate Negative (Negative) Urine Bilirubin Neg (Negative) Urine Urobilinogen 1 H (Negative) mg/dL Ur Leukocyte Nohelia ase 1+ H (Negative) Urine RBC >100 H (0-2) /hpf Urine WBC 0-4 H (0-5) /hpf Ur Squamous Epith Cells 5-10 H (0-5) /hpf Amorphous Sediment Not Reportable Urine Bacteria 1+ H (NONE) /hpf Urine Mucus Trace /hpf Discharge Plan Discharge Patient Disposition: Home Clinical Impression: cardiomyopathy, HTN (hypertension) Condition: Stable Prescriptions: New metoprolol tartrate 25 mg tablet 12.5 mg PO DAILY Qty: 14 RF: 0 lisinopril 10 mg tablet 10 mg PO DAILY Qty: 30 RF: 0 No Action aripiprazole [Abilify] 2 mg tablet 2 mg PO DAILY Qty: 90 RF: 2 buspirone 10 mg tablet 10 mg PO TID Qty: 270 RF: 2 trazodone 50 mg tablet 50 mg PO .bedtime Qty: 90 RF: 2 venlafaxine [Effexor XR] 75 mg capsule,extended release 24hr 75 mg PO QAM Qty: 90 RF: 2 venlafaxine [Effexor XR] 150 mg capsule,extended release 24hr 150 mg PO QAM Qty: 90 RF: 2 ibuprofen 800 mg Tablet 800 mg PO TID Qty: 45 RF: 0 hydrocodone-acetaminophen 5-325 mg Tablet 1 tab PO Q6H PRN (Reason: Moderate To Severe Pain) Qty: 25 RF: 0 Discharge Orders: Discharge ED (Routine); Ordered 07/05/21 Ordered By: Yoshi Cho Referrals: Fili Deleon [Primary Care Provider] - Patient Instructions: Opioid Safety Sign Out Sign Out Data: Patient Sign Out occurred on 07/05/21 at 07:40. Patient's care was discussed, and care was transferred from to Yoshi Cho DO. Coding Level of Care Code ED Manager Medicaid for [place] Fwd Exam Comprehensive
[2021-07-05 04:02] LABS: Glucose Urine UA Norm (Normal); Ketones Urine Negative (Negative); Protein Urine Neg (Negative); Urine Appearance Hazy (CLEAR); Urine Color Yellow (Yellow); pH Urine 5 (5-7)
[2021-07-05 04:03] LABS: Add Urine Culture? Yes; Add Urine Microscopic? YES; Bacteria Urine 1+ /hpf; Bilirubin Urine Neg (Negative); Blood Urine 3+ (Negative); Leukocyte Esterase Urine 1+ (Negative); Mucus Urine TRACE /hpf; Nitrate Urine Negative (Negative); RBC Urine >100 /hpf (0-2); Urobilinogen Urine 1 mg/dL (Negative); WBC Urine 0-4 /hpf (0-5)
[2021-07-05] MEDS: LORazepam 2 mg/mL INJ 1 mL 0.5 MG IVP (04:05)
[2021-07-05] MEDS: hyDRALAzine 20 mg/mL INJ 1 mL 10 MG IVP ×3 (04:05→09:07)
[2021-07-05 04:06] LABS: INR 0.93 (0.8-1.2)
[2021-07-05 04:09] LABS: D Dimer 1.83 ug/mIFEU (0-0.59)
--- NOTE | 2021-07-05 04:13 | CTR_ITS ---
PROCEDURE INFORMATION: Exam: CTA Chest With Contrast Exam date and time: 07/05/2021 4:13 AM Age: 26 years old Clinical indication: Shortness of breath; Patient HX: Onset of SOB four days post . Elevated d dimer. Repeated. Best exam submitted due to body habitus. TECHNIQUE: Imaging protocol: Computed tomographic angiography of the chest with contrast. 3D rendering (Not supervised by radiologist): MIP and/or 3D reconstructed images were created by the technologist. Radiation optimization: All CT scans at this facility use at least one of these dose optimization techniques: automated exposure control; mA and/or kV adjustment per patient size (includes targeted exams where dose is matched to clinical indication); or iterative reconstruction. Contrast material: OMNI 350; Contrast volume: 131 ml; Contrast route: INTRAVENOUS (IV); COMPARISON: CR (CHEST, ) 07/05/2021 3:51 AM RADIATION DOSE METRICS: Total DLP (mGy-cm): 1040.64 FINDINGS: Pulmonary arteries: Poor pulmonary artery bolus concentration prevents evaluation for pulmonary embolism. Aorta: Unremarkable. No aortic aneurysm. No aortic dissection. Lungs: 6 mm right upper lobe pulmonary nodule. There is interstitial edema with scattered airspace opacities. Pleural spaces: Small bilateral pleural effusions. Heart: Unremarkable. No cardiomegaly. No pericardial effusion. Lymph nodes: Unremarkable. No enlarged lymph nodes. Bones/joints: Unremarkable. No acute fracture. Soft tissues: Unremarkable. CT/CT angio chest PE protcl [id number] IMPRESSION: 1. Study nondiagnostic for pulmonary embolism. Contrast injection will need to be repeated, to exclude pulmonary embolism. 2. Pulmonary edema with small bilateral pleural effusions.. 3. 6 mm right upper lobe pulmonary nodule. If the patient does not have known cancer, follow up should be based on clinical information because of the low risk of cancer in this age group. (Reference: Juan) REFERENCES: Juan H, et al. Guidelines for Management of Incidental Pulmonary Nodules Detected on CT Images: From the Fleischner Society 2017. Radiology. 2017;284(1):228-243. Radiation Dose CTDIVOL = (mGy): DLP = 1040.64 (mGy-cm)
[2021-07-05 04:14] LABS: Troponin(5th) Baseline 8 ng/L (0-10)
[2021-07-05 04:23] LABS: Alanine Aminotransferase 34 U/L (0-33); Alkaline Phosphatase 112 IU/L (35-105); Blood Urea Nitrogen 13 mg/dL (6-20); Calcium 8.3 mg/dL (8.5-10.5); Carbon Dioxide 19 mmol/L (22-29); Chloride 107 mmol/L (98-107); Globulin 2.4 g/dL (1.3-4.6); Glomerular Filtration Rate 146.9 mL/min (90-130); Glucose 91 mg/dL (65-115); NT Pro B Type Natriuretic Pept 500 pg/mL (0-125); Osmolality Calculated 286 mOsm/kg (285-295); Sodium 138 mmol/L (136-145); Total Bilirubin 0.3 mg/dL (0.15-1.2); Total Protein 5.4 g/dL (6.6-8.7)
[2021-07-05 04:32] LABS: Aspartate Amino Transferase 30 U/L (0-32)
[2021-07-05] MEDS: iohexol 350 mg/mL 100 mL Btl IV ×3 (04:40→08:32)
--- NOTE | 2021-07-05 05:43 | USCV_ITS ---
Cinthia Osullivan Age: 26 Gender: F : 1995 Exam Date: 07/05/2021 06:19 Ordering Phys: Ned Carmona MD Technologist: Marnie Rascon [place] [facility] [place]ication: 4 DAY POST AND VERY SOB BP: 158 / 66 HR: 92 Rhythm: Sinus Technical Quality: Good MEASUREMENTS (Male / Female) Normal Values 2D ECHO LV Diastolic Diameter PLAX 4.6 cm 4.2 - 5.9 / 3.9 - 5.3 cm LV Systolic Diameter PLAX 2.7 cm LV Chamber Size 4.2 cm IVS Diastolic Thickness 1.4 cm 0.6 - 1.0 / 0.6 - 0.9 cm IVS Systolic Thickness 1.6 cm LVPW Diastolic Thickness 1.6 cm 0.6 - 1.0 / 0.6 - 0.9 cm LVPW Systolic Thickness 1.4 cm RV Chamber Size 4.0 cm LVOT Diameter 2.0 cm LV Ejection Fraction 2D Teich 72.1 % LV Ejection Fraction MOD 2C 63.8 % LV Ejection Fraction 2C AL 62.8 % LA Diameter 3.9 cm LA Width 3.4 cm LA Height 5.3 cm RA Width 3.4 cm RA Height 4.3 cm Aorta at Sinotubular Diameter 2.7 cm M-MODE LV Diastolic Diameter MM 4.6 cm 4.2 - 5.9 / 3.9 - 5.3 cm LV Systolic Diameter MM 3.6 cm LV Ejection Fraction MM Teich 45.8 % IVS Diastolic Thickness MM 1.3 cm 0.6 - 1.0 / 0.6 - 0.9 cm IVS Systolic Thickness MM 1.5 cm LVPW Diastolic Thickness MM 1.4 cm 0.6 - 1.0 / 0.6 - 0.9 cm LVPW Systolic Thickness MM 1.4 cm RV Diastolic Diameter MM 2.4 cm Aortic Annulus Diameter 3.3 cm LA Ao Ratio MM 1.4 MV E Point Septal Separation 0.8 cm DOPPLER AV Peak Velocity 188.0 cm/s LVOT Peak Velocity 122.0 cm/s AV Area Cont Eq vti 2.3 cm squared AV Area Cont Eq pk 2.1 cm squared MV Area PHT 5.4 cm squared Mitral E to A Ratio 1.5 MV E' Velocity 65.5 cm/s Mitral E to MV E' Ratio 8.2 Mitral E to LV E' Lateral Ratio 7.0 Mitral E to LV E' Septal Ratio 9.8 TR Peak Velocity 202.3 cm/s TR Peak Gradient 16.4 mmHg TR Mean Velocity 157.3 cm/s TR Mean Gradient 10.9 mmHg TR Velocity Time Integral 52.4 cm TV Peak E Velocity 70.0 cm/s Right Atrial Pressure 3.0 mmHg Pulmonary Artery Systolic Pressu 19.4 mmHg PV Peak Velocity 56.0 cm/s RV Acceleration Time 0.1 s RV Ejection Time 0.3 s RV AcT/ET 0.3 FINDINGS Left Ventricle Normal left ventricular size. LV systolic function is normal with EF of 55-60%. No regional wall motion abnormalities. Normal diastolic function Right Ventricle The right ventricle is normal in size and function. Right Atrium The right atrium is normal in size. Left Atrium The left atrium is normal in size. Mitral Valve Structurally normal mitral valve without significant stenosis or prolapse. There is trace mitral regurgitation. Aortic Valve Structurally normal aortic valve without significant sclerosis or stenosis. There is no aortic regurgitation. Tricuspid Valve Structurally normal tricuspid valve without significant stenosis or regurgitation. Insufficient TR jet to calculate RVSP Pulmonic Valve Structurally normal pulmonic valve without significant stenosis. There is no pulmonic regurgitation. Pericardium Normal pericardium without effusion. Aorta Normal ascending aorta dimension. CONCLUSIONS LV systolic function is normal with EF of 55-60% Diastolic function is normal Trace mitral regurgitation No comparison studies are available. Phil Dunne MD (Electronically Signed) Final Date: 05 July 2021 09:44 S
[2021-07-05] MEDS: LORazepam 2 mg/mL INJ 1 mL 1 MG IVP (06:06)
[2021-07-05 07:16] LABS: Troponin 5 2HR 8.19 ng/L (0-10); Troponin 5 2HR Delta 0.19 ABS# (0-10)
--- NOTE | 2021-07-05 08:02 | CT_ITS ---
WS: [id number] CTA OF THE CHEST WITH PULMONARY EMBOLISM PROTOCOL TECHNIQUE: High-resolution contrast enhanced CTA of the chest with coronal and sagittal reformatted i mages with pulmonary embolism protocol. MIP images are also reviewed. CLINICAL INFORMATION: elevated ddimer COMPARISON: CTA July 05, 2021 DLP: 935.[address] scans at [facility] use at least one of these dose optimization techniques: automated e xposure control; mA and/or kV adjustment per patient size (includes targeted exams where dose is matc hed to clinical indication); or iterative reconstruction. FINDINGS: Improved contrast opacification compared to earlier today. Proximal main pulmonary arteries are nick l. Segmental pulmonary arteries appear patent. Distal most subsegmental arteries are suboptimally vis ualized due to body habitus. No evidence of pulmonary embolus. Small bilateral pleural effusions. No acute pulmonary infiltrates. No focal pneumonia. Tiny 6 mm uppe r lobe pulmonary nodule may be inflammatory. No mediastinal or hilar lymphadenopathy. No axillary lym phadenopathy. Aberrant right subclavian artery. Cholecystectomy clips. Small esophageal hiatal hernia . CT/CT angio chest PE protcl [id number] IMPRESSION: 1. Improved study compared to earlier today. No evidence of pulmonary embolus. 2. Small bilateral pleural effusions. No acute pulmonary infiltrates. 3. Incidentally noted is aberrant right subclavian artery with retroesophageal course. 4. Prior cholecystectomy. 5. Noncalcified pulmonary nodule right upper lobe measuring 6 mm may be inflam matory. This can be followed up in [address] Notified Yoshi Cho DO at 07/05/2021 8:50 AM.
--- NOTE | 2021-07-05 08:45 | PC.NURSE ---
EKG done by RN. Pt refuses cath urine. ED provider notified.
[2021-07-05] MEDS: HYDROmorphone 1 mg/mL INJ 1 mL 0.5 MG IVP (09:07)
--- NOTE | 2021-07-05 09:09 | ECG_ITS ---
[facility] Test Date: 2021-07-05 Pat Name: Cinthia Osullivan Department: Room: Gender: Female Director Clinical Applications: : 1995 Requested By: Ned Carmona Order Number: [id number] Trey MD: Kim Vidal M.D. Measurements Intervals [place] Rate: 76 P: 42 NC: 139 QRS: 44 QRSD: 95 T: 53 QT: 366 QTc: 412 Interpretive Statements SINUS RHYTHM WITH SINUS ARRHYTHMIA INTERPRETATION BASED ON A DEFAULT AGE OF 40 YEARS No previous ECG available for comparison Electronically Signed On 07-06-2021 10:39:17 CDT by Kim Vidal M.D. [id number]
== END 2021-07-05 09:44 | disposition home or self-care (01) ==
PROVIDERS: Emergency Medicine; Emergency Provider Family Medicine; PCP Family Medicine
DX: O90.3 Peripartum cardiomyopathy (principal); O16.5 Unspecified maternal hypertension, complicating the puerperium
CPT/HCPCS: 71045; 71275; 80053; 81001; 83880; 84484; 85025; 85378; 85610; 87077; 87086; 87186; 93005; 93306; 96374; 96375; 96376; 99284; J0360; J1170; J2060; Q9967

== ENCOUNTER → 2022-03-13 14:02 | Outpatient (BNVA) | payer BC, MEDICAID, SELFPAY | PROVIDERS: PCP Family Medicine; Visit Provider Nurse Practitioner Psychiatric/Mental Health | DX: F33.2 Major depressive disorder, recurrent severe without psychotic features (principal); F41.0 Panic disorder [episodic paroxysmal anxiety]; F41.1 Generalized anxiety disorder; Z79.899 Other long term (current) drug therapy; Z03.89 Encounter for observation for other suspected diseases and conditions ruled out | CPT/HCPCS: 99214 ==

== ENCOUNTER → 2022-08-29 10:42 | Outpatient (BNVA) | payer BC, MEDICAID, SELFPAY | PROVIDERS: PCP Family Medicine; Visit Provider Nurse Practitioner Psychiatric/Mental Health | DX: Z03.89 Encounter for observation for other suspected diseases and conditions ruled out (principal); Z79.899 Other long term (current) drug therapy; F50.81 Binge eating disorder; F33.2 Major depressive disorder, recurrent severe without psychotic features; F41.0 Panic disorder [episodic paroxysmal anxiety]; F41.1 Generalized anxiety disorder | CPT/HCPCS: 80053; 80061; 82306; 83036 ==